=== PATIENT | female | born 1970 | race Caucasian/White ===

== ENCOUNTER 2017-12-25 23:49 | Emergency (ER) | payer MEDICARE, MEDICAID ==
[~2017-12-25] VITALS: Ht 162.6 cm; Wt 90.0 kg
[~2017-12-25 23:49] MED LIST: ARIP30TA7 PO; ATOR10TA87 PO; BENZ2TAB7 PO; CALC200T29 PO; DIPH50CA4 PO; DIVA125T3 PO; IBUP-1985 PO; LISI2.5T89 PO; LORA1TAB PO; LURA40TA3 PO; LURA80TA3 PO; METF500T PO; OXCA300T PO; OXCA600T PO; PROP40TA72 PO; QUET200T PO
[2017-12-26] MEDS ORDERED: bacitracin 15gm ointment TP ONE (00:20)
[2017-12-26] MEDS ORDERED: normal saline 1000ml 1,000 ML IV ONE (00:20)
[2017-12-26] MEDS ORDERED: levetiracetam inj 1,000 MG in normal saline 100ml IV soln 90 ML IV ONE (00:55)
[2017-12-26] MEDS ORDERED: levetiracetam 100mg/ml inj IV ONE (00:57)
[2017-12-26 01:23] LABS: ALANINE AMINOTRANSFERASE 22 U/L (12-78); ALBUMIN/GLOBULIN RATIO 0.9 (1.1-1.5); ALKALINE PHOSPHATASE 86 IU/L (46-116); ANION GAP 5 (8-16); ASPARTATE AMINO TRANSFERASE 20 U/L (10-37); BASOPHILS % (AUTO) 0.6 % (0-1); BILIRUBIN,TOTAL 0.2 MG/DL (0.1-1.0); BLOOD UREA NITROGEN 15 MG/DL (7-18); BUN/CREATININE RATIO 20.8 (6.6-38.0); CALCIUM 8.8 MG/DL (8.5-10.1); CHLORIDE 106 MMOL/L (99-107); CREATININE 0.72 MG/DL (0.40-0.90); EOSINOPHILS # (AUTO) 0.3 X10'3 (0-0.9); EOSINOPHILS % (AUTO) 4.4 % (0-6); GLUCOSE 101 MG/DL (70-104); HEMATOCRIT 33.8 % (35.0-45.0); HEMOGLOBIN 11.3 g/dl (12.0-16.0); LYMPHOCYTES # (AUTO) 2.3 X10'3 (1.1-4.8); LYMPHOCYTES % (AUTO) 32.8 % (21-51); MEAN CORPUSCULAR HEMOGLOBIN 31.3 PG (27.0-31.0); MEAN CORPUSCULAR HGB CONC 33.5 % (33.0-36.5); MEAN CORPUSCULAR VOLUME 93.4 FL (78-98); MEAN PLATELET VOLUME 7.9 FL (7.4-10.4); MONOCYTES # (AUTO) 0.8 X10'3 (0-0.9); MONOCYTES % (AUTO) 11.1 % (2-12); NEUTROPHILS # (AUTO) 3.6 X10'3 (1.8-7.7); NEUTROPHILS % (AUTO) 51.1 % (42-75); PLATELET COUNT 290 X10'3 (140-440); POTASSIUM 4.2 MMOL/L (3.5-5.1); RED BLOOD COUNT 3.62 X10'6 (4.20-5.60); RED CELL DISTRIBUTION WIDTH 12.9 % (11.5-14.5); SODIUM 141 MMOL/L (135-145); TOTAL CARBON DIOXIDE 29.6 MMOL/L (24-32); TOTAL PROTEIN 6.4 G/DL (6.4-8.2); eGFR 87 ML/MIN
[2017-12-26] MEDS ORDERED: AZIT500T5 PO (01:26)
[2017-12-26] MEDS ORDERED: DIVA500T7 PO (01:29)
[2017-12-26 03:41] VITALS: BP 139/68
[2017-12-26] MEDS ORDERED: levetiracetam inj 1,000 MG in normal saline 100ml IV soln 90 ML IV SCH (08:00)
== END 2017-12-26 02:30 | disposition home or self-care (01) ==
LOC: ER 23:49
DX: G40.909 Epilepsy, unspecified, not intractable, without status epilepticus (principal); R05 Cough; E11.9 Type 2 diabetes mellitus without complications; Z91.14 Patient's other noncompliance with medication regimen; Z88.5 Allergy status to narcotic agent; Z88.8 Allergy status to other drugs, medicaments and biological substances; Z79.899 Other long term (current) drug therapy; Z79.84 Long term (current) use of oral hypoglycemic drugs
CPT/HCPCS: 36415; 71045; 80053; 85025; 96365; 99285; J1953; J7030

== ENCOUNTER 2018-01-10 12:26 | Emergency (ER) | payer MEDICARE, MEDICAID ==
[~2018-01-10] VITALS: Ht 70810.9 cm; Wt 91.9 kg
[~2018-01-10 12:26] MED LIST changes: +AZIT500T5 PO; +DIVA500T7 PO
[2018-01-10 13:18] LABS: BASOPHILS # (AUTO) 0.1 X10'3 (0-0.2); EOSINOPHILS # (AUTO) 0.2 X10'3 (0-0.9); EOSINOPHILS % (AUTO) 2.7 % (0-6); HEMATOCRIT 34.2 % (35.0-45.0); HEMOGLOBIN 11.6 g/dl (12.0-16.0); LYMPHOCYTES # (AUTO) 1.3 X10'3 (1.1-4.8); MEAN CORPUSCULAR HEMOGLOBIN 31.9 PG (27.0-31.0); MEAN CORPUSCULAR HGB CONC 33.9 % (33.0-36.5); MEAN PLATELET VOLUME 7.6 FL (7.4-10.4); MONOCYTES # (AUTO) 0.5 X10'3 (0-0.9); NEUTROPHILS # (AUTO) 3.5 X10'3 (1.8-7.7); NEUTROPHILS % (AUTO) 63.3 % (42-75); PLATELET COUNT 275 X10'3 (140-440); RED BLOOD COUNT 3.64 X10'6 (4.20-5.60); RED CELL DISTRIBUTION WIDTH 14.3 % (11.5-14.5); WHITE BLOOD COUNT 5.6 X10'3 (4.5-11.0)
[2018-01-10 13:32] LABS: ALANINE AMINOTRANSFERASE 22 U/L (12-78); ALBUMIN 3.2 G/DL (3.4-5.0); ALBUMIN/GLOBULIN RATIO 0.9 (1.1-1.5); ALKALINE PHOSPHATASE 92 IU/L (46-116); ANION GAP 5 (8-16); ASPARTATE AMINO TRANSFERASE 23 U/L (10-37); BILIRUBIN,TOTAL 0.3 MG/DL (0.1-1.0); BLOOD UREA NITROGEN 9 MG/DL (7-18); BUN/CREATININE RATIO 13.2 (6.6-38.0); CALCIUM 8.8 MG/DL (8.5-10.1); CHLORIDE 104 MMOL/L (99-107); CREATININE 0.68 MG/DL (0.40-0.90); GLUCOSE 121 MG/DL (70-104); POTASSIUM 3.9 MMOL/L (3.5-5.1); SODIUM 139 MMOL/L (135-145); TOTAL CARBON DIOXIDE 29.9 MMOL/L (24-32); TOTAL PROTEIN 6.7 G/DL (6.4-8.2); eGFR > 90 ML/MIN
[2018-01-10 13:41] LABS: ETHANOL < 0.010 GM/DL (0.0-0.010)
[2018-01-10] MEDS ORDERED: haloperidol lactate 5mg/ml inj IM PRN (17:10)
[2018-01-10] MEDS ORDERED: diphenhydrAMINE 50 mg/ml inj IM PRN (17:10)
[2018-01-10] MEDS: LORazepam 2 mg/ml vial IM PRN (17:52)
[2018-01-11 06:16] LABS: CLARITY,URINE CLEAR (Clear); COLOR,URINE YELLOW (Yellow); GLUCOSE, URINE NEGATIVE (Neg); KETONES,URINE NEGATIVE (Neg); LEUKOCYTE ESTERASE ,URINE NEGATIVE (Neg); NITRITES, URINE NEGATIVE (Neg); OCCULT BLOOD,URINE NEGATIVE (Neg); PH,URINE 7.5 (4.8-8.0); PROTEIN,URINE NEGATIVE (Neg); UROBILINOGEN,URINE 0.2 E.U/dL (0.2-1.0)
[2018-01-11 06:17] LABS: URINE HCG NEGATIVE (NEG)
[2018-01-11 06:23] LABS: UA COLLECTION TYPE CLN CATCH MIDSTREAM
[2018-01-11 06:30] LABS: URINE AMPHETAMINE SCREEN NEGATIVE (Neg); URINE BARBITUATE SCREEN NEGATIVE (Neg); URINE BENZODIAZEPINES SCREEN NEGATIVE (Neg); URINE CANNABINOID SCREEN NEGATIVE (Neg); URINE COCAINE SCREEN NEGATIVE (Neg); URINE METHADONE SCREEN NEGATIVE (Neg); URINE OPIATE SCREEN NEGATIVE (Neg); URINE PHENCYCLIDINE SCREEN NEGATIVE (Neg)
[2018-01-11] MEDS ORDERED: paliperidone palmitate 156 mg/ml inj.**IM only IM ONE (15:10)
[2018-01-11] MEDS ORDERED: RISP1TAB3 PO (15:33)
[2018-01-11] MEDS ORDERED: LORazepam 1 MG tablet PO ONE (20:05)
[2018-01-11] MEDS: metFORMIN 500mg tablet PO SCH (20:08)
[2018-01-11] MEDS ORDERED: risperiDONE 0.5mg tablet PO SCH (21:00)
[2018-01-12] MEDS ORDERED: OLANZapine 5mg rapidly disint. tablet PO ONE (05:05)
[2018-01-12] MEDS ORDERED: LORazepam 1 MG tablet PO ONE (05:05)
[2018-01-12] MEDS: metFORMIN 500mg tablet PO SCH ×2 (07:54→20:13)
[2018-01-12] MEDS: OLANZapine 5mg rapidly disint. tablet PO SCH (20:15)
[2018-01-12] MEDS ORDERED: acetaminophen 325mg tablet PO ONE (21:05)
[2018-01-13] MEDS: metFORMIN 500mg tablet PO SCH ×2 (08:27→20:46)
[2018-01-13] MEDS: OLANZapine 5mg rapidly disint. tablet PO SCH ×2 (08:27→20:47)
[2018-01-13] MEDS: LORazepam 2 mg/ml vial IM PRN (13:54)
[2018-01-14] MEDS: LORazepam 1 MG tablet PO PRN ×2 (07:49→21:13)
[2018-01-14] MEDS: metFORMIN 500mg tablet PO SCH ×2 (07:49→21:14)
[2018-01-14] MEDS: OLANZapine 5mg rapidly disint. tablet PO SCH ×2 (07:49→21:13)
[2018-01-15] MEDS: LORazepam 1 MG tablet PO PRN (08:32)
[2018-01-15] MEDS: OLANZapine 5mg rapidly disint. tablet PO SCH (08:32)
[2018-01-15] MEDS ORDERED: acetaminophen 325mg tablet PO PRN (08:40)
[2018-01-15] MEDS: metFORMIN 500mg tablet PO SCH (08:41)
[2018-01-15 17:54] VITALS: BP 119/80
== END 2018-01-15 17:35 ==
LOC: ER 12:27
DX: F20.9 Schizophrenia, unspecified (principal); E11.9 Type 2 diabetes mellitus without complications; Z88.5 Allergy status to narcotic agent; Z88.8 Allergy status to other drugs, medicaments and biological substances
CPT/HCPCS: 36415; 80053; 80305; 80320; 81003; 81025; 82948; 84443; 85025; 96372; 99285; J1200; J1630; J2060

== ENCOUNTER 2018-05-02 19:06 | Emergency (ER) | payer MEDICARE, MEDICAID ==
[~2018-05-02] VITALS: Ht 160 cm; Wt 95.0 kg
[~2018-05-02 19:06] MED LIST changes: -ARIP30TA7 PO; -ATOR10TA87 PO; -AZIT500T5 PO; -BENZ2TAB7 PO; -CALC200T29 PO; -DIPH50CA4 PO; -DIVA125T3 PO; -DIVA500T7 PO; -IBUP-1985 PO; -LISI2.5T89 PO; -LORA1TAB PO; -LURA40TA3 PO; -LURA80TA3 PO; -OXCA300T PO; -OXCA600T PO; -PROP40TA72 PO; -QUET200T PO; +RISP1TAB3 PO
[2018-05-02 19:08] VITALS: BP 120/97
== END 2018-05-02 21:05 | disposition home or self-care (01) ==
LOC: ER 19:06
DX: Z00.00 Encounter for general adult medical examination without abnormal findings (principal); E11.9 Type 2 diabetes mellitus without complications; F20.9 Schizophrenia, unspecified; Z88.6 Allergy status to analgesic agent; Z88.8 Allergy status to other drugs, medicaments and biological substances; Z59.0 Homelessness
CPT/HCPCS: 99284

== ENCOUNTER 2018-09-03 02:27 | Emergency (ER) | payer MEDICARE, MEDICAID ==
[~2018-09-03] VITALS: Ht 160 cm; Wt 105.0 kg
[2018-09-03 02:40] VITALS: BP 113/76
== END 2018-09-03 02:42 | disposition home or self-care (01) ==
LOC: ER 02:28
DX: M25.562 Pain in left knee (principal); M79.641 Pain in right hand; M79.671 Pain in right foot; E11.9 Type 2 diabetes mellitus without complications; Z59.0 Homelessness; Z88.6 Allergy status to analgesic agent; Z88.5 Allergy status to narcotic agent; W19.XXXA Unspecified fall, initial encounter; Y93.89 Activity, other specified; Y92.89 Other specified places as the place of occurrence of the external cause; Y99.9 Unspecified external cause status
CPT/HCPCS: 99283

== ENCOUNTER 2018-10-04 16:32 | Emergency (ER) | payer MEDICARE, MEDICAID ==
[~2018-10-04] VITALS: Ht 160 cm; Wt 102.7 kg
[2018-10-04 17:10] VITALS: BP 122/77
[2018-10-04] MEDS ORDERED: acetaminophen 325mg tablet PO ONE (19:00)
[2018-10-04] MEDS ORDERED: ACET-812 PO (19:02)
== END 2018-10-04 19:24 | disposition home or self-care (01) ==
LOC: ER 16:32
DX: S06.0X0A Concussion without loss of consciousness, initial encounter (principal); M54.2 Cervicalgia; E11.9 Type 2 diabetes mellitus without complications; F12.90 Cannabis use, unspecified, uncomplicated; Z59.0 Homelessness; Z88.6 Allergy status to analgesic agent; Z88.8 Allergy status to other drugs, medicaments and biological substances; Y08.89XA Assault by other specified means, initial encounter; Y93.89 Activity, other specified; Y92.89 Other specified places as the place of occurrence of the external cause; Y99.8 Other external cause status
CPT/HCPCS: 99283

== ENCOUNTER 2019-01-04 11:38 | Emergency (ER) | payer MEDICARE, MEDICAID ==
[~2019-01-04 11:38] MED LIST changes: +CITA20TA27 PO; +PALI819S IM; +PALI9TAB4 PO; +PROP20TA6 PO; -RISP1TAB3 PO; +RISP3TAB3 PO
[2019-01-05] MEDS ORDERED: SERT25TA PO (11:26)
[2019-01-05] MEDS ORDERED: METF500T PO (11:26)
[2019-01-05] MEDS ORDERED: RISP3TAB3 PO (11:26)
[2019-01-05] MEDS ORDERED: ALB0.5UD IH (11:26)
== END 2019-01-04 12:24 | disposition left against medical advice (07) ==
LOC: ER 11:39
DX: Z00.8 Encounter for other general examination (principal); Z53.21 Procedure and treatment not carried out due to patient leaving prior to being seen by health care provider

== ENCOUNTER 2019-01-04 20:57 | Emergency (ER) | payer MEDICARE, MEDICAID ==
[~2019-01-04] VITALS: Ht 162.6 cm; Wt 99.4 kg
[2019-01-04 23:18] LABS: BASOPHILS % (AUTO) 0.4 % (0-1); EOSINOPHILS # (AUTO) 0.1 X10'3 (0-0.9); EOSINOPHILS % (AUTO) 0.9 % (0-6); HEMATOCRIT 36.7 % (35.0-45.0); HEMOGLOBIN 12.3 g/dl (12.0-16.0); LYMPHOCYTES % (AUTO) 19.6 % (21-51); MEAN CORPUSCULAR HEMOGLOBIN 30.9 PG (27.0-31.0); MEAN CORPUSCULAR HGB CONC 33.7 g/dL (33.0-36.5); MEAN CORPUSCULAR VOLUME 91.7 FL (78-98); MEAN PLATELET VOLUME 7.7 FL (7.4-10.4); MONOCYTES % (AUTO) 10.3 % (2-12); NEUTROPHILS % (AUTO) 68.8 % (42-75); PLATELET COUNT 290 X10'3 (140-440); RED CELL DISTRIBUTION WIDTH 12.7 % (11.5-14.5); WHITE BLOOD COUNT 10.2 X10'3 (4.5-11.0)
[2019-01-04 23:34] LABS: ALANINE AMINOTRANSFERASE 21 U/L (12-78); ALBUMIN 3.1 G/DL (3.4-5.0); ALBUMIN/GLOBULIN RATIO 0.9 (1.1-1.5); ALKALINE PHOSPHATASE 117 IU/L (46-116); ANION GAP 5 (8-16); ASPARTATE AMINO TRANSFERASE 15 U/L (10-37); BILIRUBIN,TOTAL 0.2 MG/DL (0.1-1.0); BLOOD UREA NITROGEN 15 MG/DL (7-18); BUN/CREATININE RATIO 23.4 (6.6-38.0); CALCIUM 9.1 MG/DL (8.5-10.1); CHLORIDE 104 MMOL/L (99-107); CREATININE 0.64 MG/DL (0.40-0.90); GLUCOSE 101 MG/DL (70-104); POTASSIUM 3.7 MMOL/L (3.5-5.1); SODIUM 138 MMOL/L (135-145); TOTAL CARBON DIOXIDE 28.8 MMOL/L (24-32); TOTAL PROTEIN 6.7 G/DL (6.4-8.2); eGFR > 90 ML/MIN
[2019-01-04 23:44] LABS: ETHANOL < 0.010 GM/DL (0.0-0.010)
[2019-01-04 23:45] LABS: ACETAMINOPHEN < 2.0 UG/ML (10-30)
[2019-01-04 23:58] LABS: CLARITY,URINE SLIGHTLY CLOUDY (Clear); COLOR,URINE YELLOW (Yellow); GLUCOSE, URINE NEGATIVE (Neg); KETONES,URINE NEGATIVE (Neg); LEUKOCYTE ESTERASE ,URINE NEGATIVE (Neg); NITRITES, URINE NEGATIVE (Neg); OCCULT BLOOD,URINE TRACE-INTACT (Neg); PH,URINE 5.5 (4.8-8.0); PROTEIN,URINE NEGATIVE (Neg); UA COLLECTION TYPE CLN CATCH MIDSTREAM; UROBILINOGEN,URINE 0.2 E.U/dL (0.2-1.0)
[2019-01-05] LABS: URINE HCG NEGATIVE (NEG)
[2019-01-05 00:09] LABS: BACTERIA,URINE 3+ /HPF (Neg); MUCUS STRANDS MANY /LPF (Neg); RBC,URINE 0-2 /HPF (0-2); SQUAMOUS EPITHELIAL CELL,UR MANY /LPF (FEW); WBC,URINE 0-4 /HPF (0-4)
--- NOTE | 2019-01-05 00:09 | NUR ---
[facility] Gave report to Rolando at [phone].
[2019-01-05 00:10] LABS: URINE AMPHETAMINE SCREEN NEGATIVE (Neg); URINE BARBITUATE SCREEN NEGATIVE (Neg); URINE BENZODIAZEPINES SCREEN NEGATIVE (Neg); URINE CANNABINOID SCREEN NEGATIVE (Neg); URINE COCAINE SCREEN NEGATIVE (Neg); URINE METHADONE SCREEN NEGATIVE (Neg); URINE OPIATE SCREEN NEGATIVE (Neg); URINE PHENCYCLIDINE SCREEN NEGATIVE (Neg)
--- NOTE | 2019-01-05 00:55 | NUR ---
Packet faxed to [facility]. Unable to confirm receipt of packet as [id number] hours.
--- NOTE | 2019-01-05 01:12 | NUR ---
Pt arrived on unit and went right to sleep. Pt sleeping without distress.
--- NOTE | 2019-01-05 03:00 | NUR ---
Pt remains sleeping peacefully without distress.
--- NOTE | 2019-01-05 05:00 | NUR ---
Pt up to bathroom around 0440 and when returning to bed, pt passionately talking nonsensicle things to herself.
--- NOTE | 2019-01-05 10:09 | NUR ---
Spoke w/ pt states she is trying to think self-harming thoughts and has no active plan for self-harm. Patient affect is flat, but pt is cooperative and forthcoming in thoughts. Pt woke up to use bathroom and layed back down immediately after.
--- NOTE | 2019-01-05 10:12 | NUR ---
Pt states her pharmacy is [facility]. Attempted to call to get revised med list but pharmacy is closed until Sunday. Pt. unable to tell me her medications, states she doesn't remember.
[2019-01-05] MEDS ORDERED: SERT25TA PO (11:26)
[2019-01-05] MEDS ORDERED: METF500T PO (11:26)
[2019-01-05] MEDS ORDERED: RISP3TAB3 PO (11:26)
[2019-01-05] MEDS ORDERED: ALB0.5UD IH (11:26)
[2019-01-05] MEDS ORDERED: albuterol 2.5 mg/0.5ml nebule NEB PRN (12:20)
[2019-01-05] MEDS ORDERED: albuterol 2.5 MG/3 ML nebule NEB PRN (12:25)
[2019-01-05] MEDS ORDERED: risperiDONE 0.5mg tablet PO SCH (12:25)
--- NOTE | 2019-01-05 13:52 | NUR ---
Patient is resting, light is on, in view of nursing station.
--- NOTE | 2019-01-05 17:22 | NUR ---
RT at bedside, pt states she smoke 1/4 pack cigarettes/ day.
--- NOTE | 2019-01-05 17:38 | NUR ---
Pt reporting INGRAM, requesting tylenol. Jonathan KHOURY notified.
[2019-01-05 17:41] VITALS: BP 120/76
--- NOTE | 2019-01-05 19:00 | NUR ---
Received pt lying awake in bed in no distress.
--- NOTE | 2019-01-05 19:37 | NUR ---
Respiratory therapist at bedside for pt's breathing treatment. Equipment returned to store room after completion of treatment for patient's safety.
[2019-01-05] MEDS ORDERED: risperiDONE 2mg tablet PO SCH (20:49)
--- NOTE | 2019-01-05 20:58 | NUR ---
Pt given HS meds and snack - cheese and sugar free jello. BG 98.
[2019-01-06] MEDS ORDERED: sertraline 50mg tablet PO SCH (08:00)
[2019-01-06] MEDS ORDERED: metFORMIN 500mg tablet PO SCH (08:00)
== END 2019-01-05 22:03 | disposition home or self-care (01) ==
LOC: ER 20:58
DX: R45.851 Suicidal ideations (principal); F20.9 Schizophrenia, unspecified; F31.9 Bipolar disorder, unspecified; E11.9 Type 2 diabetes mellitus without complications; F12.90 Cannabis use, unspecified, uncomplicated; Z59.0 Homelessness; Z88.6 Allergy status to analgesic agent; Z88.5 Allergy status to narcotic agent; Z79.84 Long term (current) use of oral hypoglycemic drugs; Z79.899 Other long term (current) drug therapy
CPT/HCPCS: 36415; 80053; 80305; 80320; 80329; 81001; 81025; 82948; 84443; 85025; 94640; 94760; 99285; J7611